=== PATIENT | female | born 1980 | race Caucasian/White ===

== ENCOUNTER 2017-12-01 08:30 | Outpatient (CLI) | payer OTHER ==
[2017-12-01 09:23] LABS: BASOPHILS % (AUTO) 0.5 % (0.0-2.0); EOSINOPHILS # (AUTO) 0.2 K/uL (0.0-0.4); EOSINOPHILS % (AUTO) 3.8 % (0.0-4.0); HEMATOCRIT 43.7 % (36-48); HEMOGLOBIN 14.7 g/dL (12.0-16.0); LYMPHOCYTES # (AUTO) 2.2 K/uL (1.0-5.5); MEAN CORPUSCULAR HEMOGLOBIN 31 pg (27-31); MEAN CORPUSCULAR HGB CONC 34 % (32-36); MEAN CORPUSCULAR VOLUME 91 fL (79.0-98.0); MONOCYTES # (AUTO) 0.5 K/uL (0.0-1.0); MONOCYTES % (AUTO) 8.9 % (1.7-9.3); NEUTROPHILS # (AUTO) 2.9 K/uL (1.8-7.7); NEUTROPHILS % (AUTO) 48.8 % (40.0-70.0); PLATELET COUNT (AUTO) 276 K/uL (130-430); RED CELL DISTRIBUTION WIDTH 12.6 % (9.0-15.0); WHITE BLOOD COUNT (AUTO) 5.9 K/uL (4.8-10.8)
[2017-12-01 09:56] LABS: ALBUMIN 3.9 g/dL (3.4-4.8); CALCIUM 9.1 mg/dL (8.4-11.0); CREATININE 0.6 mg/dL (0.55-1.30); POTASSIUM 3.7 mmol/L (3.5-5.1); THYROID STIMULATING HORMONE 1.53 uIu/mL (0.34-4.82); TOTAL BILIRUBIN 0.3 mg/dL (0.0-1.0); URIC ACID 4.2 mg/dL (2.4-7.0)
[2017-12-01 10:26] LABS: ERYTHROCYTE SEDIMENTATION RATE 2 MM/HR (0-20)
[2017-12-02 04:06] LABS: HEMOGLOBIN A1C 5.3 % (4.8-5.6)
[2017-12-02 08:14] LABS: RA LATEX TURBID <10.0 IU/mL (0.0-13.9)
[2017-12-02 14:06] LABS: ANTI NUCLEAR AB WITH REFLEX Negative (Negative)
== END 2017-12-01 15:50 | disposition home or self-care (01) ==
LOC: SMA 08:30
PROVIDERS: ATTEND Internal Medicine
DX: Z12.31 Encounter for screening mammogram for malignant neoplasm of breast (principal)
CPT/HCPCS: 36415; 77067; 80053; 80061; 82306; 82607; 83036; 83735-TC; 84443-TC; 84550-TC; 85025; 85651-TC; 86038; 86431

== ENCOUNTER 2018-03-11 09:50 | Day surgery (SDC) | payer OTHER ==
[2018-03-11] MEDS ORDERED: SIMETHICONE 40 MG/0.6 ML ML ONE (10:03)
[2018-03-11 10:08] LABS: HCG,QUAL RESULT NEGATIVE (NEGATIVE)
[2018-03-11] MEDS: MIDAZOLAM HCL 5 MG/5 ML VIAL ONE ×4 (11:06→11:16)
[2018-03-11] MEDS: fentaNYL CITRATE/PF 100 MCG/2 ML AMP ONE ×3 (11:06→11:10)
[2018-03-11] MEDS ORDERED: DIPHENHYDRAMINE INJ 50 MG/ML VIAL ONE (13:42)
[2018-03-11 14:02] VITALS: BP_SYST 109
== END 2018-03-11 12:20 | disposition home or self-care (01) ==
LOC: SDS 09:50 → EDBD 09:50 → SDS 12:20
PROVIDERS: ATTEND Internal Medicine
DX: K62.5 Hemorrhage of anus and rectum (principal); K59.00 Constipation, unspecified; Z79.899 Other long term (current) drug therapy
CPT/HCPCS: 45378; 84703; J1200; J2250; J3010

== ENCOUNTER 2018-09-16 07:24 | Outpatient (CLI) | payer OTHER ==
[2018-09-18 05:11] LABS: ESTRADIOL 74.1 pg/mL (.); FOLLICLE STIMULATION HORMONE 6.6 mIU/mL (.)
== END 2018-09-16 19:30 | disposition home or self-care (01) ==
LOC: SLB 07:24
PROVIDERS: ATTEND Physician Assistant
DX: Z31.69 Encounter for other general counseling and advice on procreation (principal)
CPT/HCPCS: 36415; 82670; 83001

== ENCOUNTER 2018-10-04 09:30 | Outpatient (CLI) | payer OTHER | END 2018-10-04 21:26 | disposition home or self-care (01) | LOC: SLB 09:30 | PROVIDERS: ATTEND Specialist | DX: Z31.69 Encounter for other general counseling and advice on procreation (principal) | CPT/HCPCS: 36415; 84144 ==